=== PATIENT | female | born 1985 | race Caucasian/White ===

== ENCOUNTER 2022-08-29 17:56 | Inpatient (IN) | payer OTHER, SELFPAY ==
[2022-08-29 18:15] VITALS: BMI 36.6
[2022-08-29 18:20] VITALS: BP 138/82; PULSE 74; RESP 16; TEMP 36.7; O2SAT 98
[2022-08-29] MEDS: QUEtiapine Fumarate 50 MG TABLET 150 MG PO (20:41)
[2022-08-29] MEDS: Ibuprofen 600 MG TABLET PO (20:41)
[2022-08-29] MEDS: Promethazine HCL 25 MG TABLET PO (20:41)
[2022-08-29] MEDS: clonazePAM 1 MG TABLET PO (20:41)
[2022-08-29] MEDS: cloNIDine HCL 0.2 MG TABLET PO (20:41)
[2022-08-29] MEDS: Melatonin 3 MG TABLET 9 MG PO (20:41)
[2022-08-29] MEDS: Mirtazapine 15 MG TABLET PO (20:42)
[2022-08-29] MEDS: Nicotine Polacrilex 2 MG GUM 4 MG BUCCAL (20:51)
--- NOTE | 2022-08-30 02:43 | PC.ADMIT ---
Yeni is a 36 year-old, Black, obese, adult female, who appears her stated age and presents with a preexisting history of polysubstance abuse and housing instability. She is dressed in hospital attire, is oriented X4, and is calm and selectively cooperative during this assessment. She is depressed in mood with flat affect and makes minimal eye contact. She maintains suicidal ideation but appears to feign hypersomnolence when this clinician asks her to elaborate. After multiple prompts she follows up with, ?I don?t feel safe out there,? presumably alluding to her homelessness and lack of jail. She denies homicidal ideation. She denies auditory/visual hallucinations and does not appear to be responding to internal stimuli. Insight, judgment, and impulse control are deemed poor. Covid negative Utox positive for opiates an jay dust. Patient presents with some irritability but patient feels that is withdrawal from Methodone as she has not had her proper dose in a few days.
--- NOTE | 2022-08-30 06:40 | HE.PHANOTE ---
[facility] has received the methadone verification from CHARMAINE Sarah. Patient last received methadone 125 mg on 08/24 @ 0909 from [facility]. Information confirmed with carlee at the clinic. Gauri Griffin, RuthieD
[2022-08-30] MEDS: Promethazine HCL 25 MG TABLET PO ×3 (08:49→18:34)
[2022-08-30 08:50] VITALS: BP 108/64; PULSE 90; RESP 18; TEMP 36.3; O2SAT 94
[2022-08-30] MEDS: Nicotine 21 MG PATCH.TD24 TRANSDERMA (08:51)
[2022-08-30] MEDS: Omeprazole 20 MG CAPSULE.DR PO (08:52)
[2022-08-30] MEDS: Ibuprofen 600 MG TABLET PO ×3 (08:52→21:10)
[2022-08-30] MEDS: Sertraline HCL 100 MG TABLET PO (08:52)
[2022-08-30] MEDS: cloNIDine HCL 0.2 MG TABLET PO ×2 (08:53→21:10)
[2022-08-30] MEDS: clonazePAM 1 MG TABLET PO ×2 (08:54→21:23)
[2022-08-30] MEDS: methADONE HCl 20 MG/2 ML ORAL.CONC 90 MG PO (08:56)
[2022-08-30] MEDS: hydrOXYzine HCL 50 MG TABLET 100 MG PO ×3 (09:00→21:10)
[2022-08-30] MEDS: Nicotine Polacrilex 2 MG GUM 4 MG BUCCAL ×3 (09:02→21:11)
[2022-08-30 09:26] LABS: Estimated Average Glucose 151 mg/dL; Hemoglobin A1c % 6.9 %
[2022-08-30 09:36] LABS: Creatinine Clr Calc Pharmacy 114.7; Estimated Glomerular Filt Rate > 60
[2022-08-30 09:52] LABS: Alanine Aminotransferase 13 U/L (0-31); Albumin Level 3.9 g/dL (3.5-5.0); Alkaline Phosphatase 94 U/L (39-117); Anion Gap 13 (12-20); Aspartate Amino Transferase 10 U/L (5-31); Bilirubin Total 0.2 mg/dL (0.0-1.0); Blood Urea Nitrogen 14 mg/dL (9-16); Calcium 9.8 mg/dL (8.4-10.2); Carbon Dioxide 30 mmol/L (22-29); Chloride 105 mmol/L (96-108); Cholesterol 199 mg/dL; Creatinine Clr Calc Pharmacy 111.7; Estimated Glomerular Filt Rate > 60; Glucose Fasting 153 mg/dL (60-99); HDL Cholesterol 38 mg/dL; LDL Cholesterol Calculated 131 mg/dl; Potassium 4.3 mmol/L (3.3-5.1); Sodium 144 mmol/L (135-145); Total Protein 6.9 g/dL (6.5-8.0); Triglycerides 152 mg/dL
[2022-08-30 10:12] LABS: Folate 13.9 ng/mL (> or = 4.0); Free T4 (Free Thyroxine) 0.81 ng/dL (0.71-1.85); Thyroid Stimulating Hormone 0.96 uIU/mL (0.32-4.0); Vitamin B12 560 pg/mL (200-900)
--- NOTE | 2022-08-30 11:43 | HO.PM.IMCN ---
History of Present Illness Data of Consult Service Date: 08/30/22 Requesting physician: Malcolm Campbell Primary Care Provider: Unknown Physician HPI 36 year old female with history of controlled type 2 diabetes, OUD on methadone, polysubstance abuse, HLD, history of CDiff per patient, and anxiety/depression who is a current 1-2 PPD smoker admitted to psychiatry with consult placed to hospitalist service for medical H&P. The patient is quite hopeless and is having difficult maintaining focus answering my questions. She tells me she was diagnosed with type 2 diabetes abotu 15 years ago but was taken off all of her medications and was controlled for some time. However, recently gained weight and has been eating poorly and presented to a medical clinic with glucose of 300 and was prescribed metformin earlier this month. She has been inconsistent in taking this. A1c today is 6.9%. For the last 5 days has been having lower abdominal cramping and diarrhea (6+episodes daily). No fevers or shaking chills. No nausea, vomiting, melena, or hematachezia. She is concerned about CDiff. States she was recently on 3 antibiotics at the same time. Unable to tell me the names or why she was taking them. She is unable to tell me about recent drug use however Utox at [facility] ED was positive for methadone, fentanyl,benzos, thc, cocaine. There was no significant leukocytosis, renal function and lytes normal. Cholesterol slightly elevated. EKG NSR, rate 95, no tyron or depressions. She has no other complaints at this time. Review of Systems Review of Systems: General: No fevers, malaise, unintentional weight loss HEENT: No blurred vision, diplopia. No sore throat, nasal congestion, rhinorrhea, sinus pain, ear pain Cardiovascular: No chest pain, palpitations, or leg edema Respiratory: No shortness of breath, wheezing, cough GI: +abd pain, +diarrhea. No nausea, vomiting, constipation, melena, hematochezia : No dysuria, hematuria, increased urinary frequency, decreased urinary output MSK: No myalgia, back pain Neuro: No headaches, weakness, paresthesias Skin: No rashes or lesions [facility] Medical History Cigarette smoker Cyclic vomiting syndrome Depression with anxiety Hyperlipidemia Opioid dependence Polysubstance abuse Type 2 diabetes mellitus Social History Household Members: None Housing: Homeless Do you presently have visiting nurse or other home services: No Patient Tobacco Use Status: Current everyday Tobacco user Tobacco use type: Cigarette Cigarette Packs Per Day: 2 Cigarettes Per Day: 40.0 Smoked in Last 30 Days: Yes e-Cigarette/Vaping Use: Never Used Patient Interested in Nicotine Replacement: Yes Patient Given Instructions on How to Stop Smoking: Yes Date Education Initiated: 08/29/22 Second Hand Smoke Exposure: Yes Substance Use Type: Hallucinogens and Opiates Substance Use Type Other:: phencyclidine Substance Use Frequency: Recent Binge Last Used Substance: Just Prior to Admission Currently Displaying Signs/Symptoms of Drug Intoxication Withdrawal: No Any prior treatment program specific to substance use: No Have you been hit, kicked, punched, or otherwise hurt by someone within the past year? If so, by whom?: No Do you feel safe in your current relationship?: No Current Relationship Is there a partner from a previous relationship who is making you feel unsafe now?: No Are you made to feel afraid or neglected: No Spiritual Healthcare Practices: Pentecostalism Sikhism Healthcare Practices: Pentecostalism Cultural Healthcare Practices: none reported Advance Directives: No Advance Directives Information Provided: No Do you have thoughts of harming others: None Do you have a plan to hurt others: No Plan Recently lost weight without trying: No How much weight loss: Not applicable Eating poorly because of decreased appetite: No Nutrition screen score: 0 Nutrition Risks: No Nutritional Risk Patient : No : No Poor oral hygiene: No Meds Allergies Allergy/AdvReac Type Severity Reaction Status Date / Time Penicillins Allergy Intermediate Rash Verified 08/29/22 18:16 ondansetron Allergy Unknown Verified 08/29/22 23:24 hydrocodone AdvReac Unknown Verified 08/29/22 23:24 tramadol AdvReac Unknown Verified 08/29/22 23:24 Active Medications: Current Medications Acetaminophen (Acetaminophen 325 Mg Tablet) 650 mg PO Q6H PRN PRN Reason: Headache/Pain Mild Scale (1-3) Al Hydroxide/Mg Hydroxide (Magnesium Hydrox/Alum Hydrox 30 Ml Oral.Susp) 30 ml PO Q6H PRN PRN Reason: Heartburn/Nausea Clonazepam (Clonazepam 1 Mg Tablet) 1 mg PO Q8H PRN PRN Reason: Anxiety Last Admin: 08/30/22 08:54 Dose: 1 mg Clonidine HCl (Clonidine Hcl 0.2 Mg Tablet) 0.2 mg PO BID [facility]; Protocol Last Admin: 08/30/22 08:53 Dose: 0.2 mg Glucose (Glucose Gel 15 Gm Gel..Gram.) 15 gm PO Q15M PRN; Protocol PRN Reason: per Hypoglycemia Standing Ord. Hydroxyzine HCl (Hydroxyzine Hcl 50 Mg Tablet) 100 mg PO Q6H PRN PRN Reason: Anxiety Last Admin: 08/30/22 09:00 Dose: 100 mg Dextrose (D10) 250 mls @ 750 mls/hr IV Q15M PRN; Protocol PRN Reason: per Hypoglycemia Standing Ord. Ibuprofen (Ibuprofen 600 Mg Tablet) 600 mg PO TID [facility] Last Admin: 08/30/22 08:52 Dose: 600 mg Insulin Human Lispro (Insulin Lispro 100 Unit/Ml 3 Ml Vial) 0 unit SUBCUT QIDACHS [facility]; Protocol Magnesium Hydroxide (Milk Of Magnesia 30 Ml Oral.Susp) 30 ml PO DAILY PRN PRN Reason: Constipation Melatonin (Melatonin 3 Mg Tablet) 9 mg PO BEDTIME PRN PRN Reason: Sleep Last Admin: 08/29/22 20:41 Dose: 9 mg Metformin HCl (Metformin Hcl 500 Mg Tablet) 500 mg PO BIDWM [facility] Last Admin: 08/30/22 08:53 Dose: 500 mg Mirtazapine (Mirtazapine 15 Mg Tablet) 15 mg PO BEDTIME [facility] Last Admin: 08/29/22 20:42 Dose: 15 mg Nicotine (Nicotine 21 Mg Patch.Td24) 21 mg TRANSDERMA DAILY [facility] Last Admin: 08/30/22 08:51 Dose: 21 mg Nicotine Polacrilex (Nicotine Polacrilex 2 Mg Gum) 4 mg BUCCAL Q2H PRN PRN Reason: Nicotine Cravings Last Admin: 08/30/22 09:02 Dose: 4 mg Omeprazole (Omeprazole 20 Mg Capsule.Dr) 20 mg PO DAILY@0630 [facility] Last Admin: 08/30/22 08:52 Dose: 20 mg Promethazine HCl (Promethazine Hcl 25 Mg Tablet) 25 mg PO Q4H PRN PRN Reason: nausea Last Admin: 08/30/22 08:49 Dose: 25 mg Quetiapine Fumarate (Quetiapine Fumarate 50 Mg Tablet) 150 mg PO BEDTIME [facility] Last Admin: 08/29/22 20:41 Dose: 150 mg Sertraline HCl (Sertraline Hcl 100 Mg Tablet) 100 mg PO DAILY [facility] Last Admin: 08/30/22 08:52 Dose: 100 mg Trazodone HCl (Trazodone Hcl 50 Mg Tablet) 50 mg PO BEDTIME MRX1 PRN PRN Reason: Insomnia Home Medications Medication Instructions Recorded Confirmed Last Taken Type acetaminophen 325 mg tablet 650 mg PO Q4-6H PRN Pain 08/29/22 08/29/22 Unknown History (Tylenol) clonazepam 1 mg tablet (Klonopin) 1 mg PO Q8-10H PRN Anxiety 08/29/22 08/29/22 Unknown History clonidine HCl 0.2 mg tablet 0.2 mg PO BID 08/29/22 08/29/22 Unknown History hydroxyzine pamoate 100 mg capsule 100 mg PO Q6-8H PRN Anxiety 08/29/22 08/29/22 Unknown History ibuprofen 600 mg tablet 600 mg PO TID 08/29/22 08/29/22 Unknown History melatonin 3 mg tablet 9 mg PO BEDTIME PRN Sleep 08/29/22 08/29/22 Unknown History metformin 500 mg tablet 500 mg PO BID 08/29/22 08/29/22 Unknown History mirtazapine 15 mg tablet 15 mg PO BEDTIME 08/29/22 08/29/22 Unknown History nicotine (polacrilex) 2 mg gum 2 mg PO Q2-3H PRN Smoking Cessation 08/29/22 08/29/22 Unknown History (Nicorette) nicotine (polacrilex) 4 mg buccal 4 mg PO Q4-5H PRN Smoking Cessation 08/29/22 08/29/22 Unknown History lozenge (Nicorette) nicotine 21 mg/24 hr daily 1 patch topical DAILY 08/29/22 08/29/22 Unknown History transdermal patch pantoprazole 40 mg tablet,delayed 40 mg PO DAILY 08/29/22 08/29/22 Unknown History release promethazine 25 mg tablet 25 mg PO Q4-6H PRN nausea 08/29/22 08/29/22 Unknown History quetiapine 100 mg tablet (Seroquel) 150 mg PO BEDTIME 08/29/22 08/29/22 Unknown History sertraline 100 mg tablet 100 mg PO DAILY 08/29/22 08/29/22 Unknown History sertraline 100 mg tablet 100 mg PO DAILY 08/29/22 08/29/22 Unknown History methadone 10 mg/mL oral concentrate 125 mg PO DAILY 08/30/22 08/30/22 08/24/22 09:09 History methadone 10 mg/mL oral 125 mg PO DAILY 08/30/22 08/30/22 08/24/22 09:09 History concentrate (Methadose) Physical Exam Vital Signs and Narrative: Vital Signs: Last Vital Signs Temp 97.4 F 08/30/22 08:50 Pulse 90 08/30/22 08:50 Resp 18 08/30/22 08:50 BP 108/64 08/30/22 08:50 Pulse Ox 94 08/30/22 08:50 O2 Del Method Room Air 08/30/22 08:50 BMI result Body Mass Index 36.6 Constitutional - Awake and Alert, No apparent distress Eyes - PERRLA, EOMI Cardiovascular - S1S2, RRR, No edema Respiratory - Normal lung expansion, Normal respiratory effort, No respiratory distress, CTA bilaterally Gastrointestinal - NT / ND; +BS; No rebound or guarding Extremities - no calf tenderness bilaterally, no swelling Musculoskeletal - Normal inspection, normal ROM Skin - Warm/Dry Neurological - Alert & oriented x3, CN II-XII in tact, 5/5 strength BUE and BLE Psychological - Appropriate affect Results Labs 08/30/22 08:31 Labs: Laboratory Results - last 24 hr 08/30/22 08/30/22 08/30/22 08:31 08:31 08:31 Anion Gap 13 Estim Creat Clear Calc 111.7 114.7 Estimated GFR > 60 > 60 Fasting Glucose 153 H Estimat Average Glucose 151 Hemoglobin A1c % 6.9 Calcium 9.8 Total Bilirubin 0.2 AST 10 ALT 13 Alkaline Phosphatase 94 Total Protein 6.9 Albumin 3.9 Triglycerides 152 Cholesterol 199 LDL Cholesterol, Calc 131 HDL Cholesterol 38 Vitamin B12 560 Folate 13.9 TSH 0.96 Free T4 0.81 Assessment and Plan (1) Routine medical exam: Status: Acute Plan 36 year old female with history of controlled type 2 diabetes, OUD on methadone, polysubstance abuse, HLD, history of CDiff per patient, and anxiety/depression who is a current 1-2 PPD smoker admitted to psychiatry with consult placed to hospitalist service for medical H&P. #Mood disorder -plan per psychiatry #Polysubstance abuse and opioid dependence -continue methadone -plan per psychiatry #Acute diarrhea -rule out infectious etiology with CDiff PCR and GI panel (ordered) -Suspect metformin possibly contributing. Change to extended release formulation for decrease risk of GI upset (ordered) -Consider immodium once infection ruled out -Pt afebrile, no leukocytosis. Non toxic appearing. Abd exam benign #Controlled type 2 diabetes -Change metformin to ER as above -POC glucose -Recommend diabetic diet- counseled on this -Humalog on sliding scale #HLD -Recommend outpt follow up -Recommend lifestyle modification #Cigarette smoker -Nicotine patch for NRT -cessation counseling Thank you for allowing me to participate in this consult. Signing off at this time. Please do not hesitate to call for further questions. Time Spent With Patient Time: Total time managing care of this patient today ____ minutes.
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
[2022-08-30 18:26] LABS: Glucose, Whole Blood 191 mg/dL (60-115)
[2022-08-30] MEDS: Insulin Lispro 100 UNIT/ML 3 ML VIAL SUBCUT ×2 (18:29→21:11)
[2022-08-30] MEDS: QUEtiapine Fumarate 100 MG TABLET PO (18:43)
[2022-08-30] MEDS: clonazePAM 0.5 MG TABLET PO (18:43)
[2022-08-30 20:57] LABS: Glucose, Whole Blood 174 mg/dL (60-115)
[2022-08-30] MEDS: QUEtiapine Fumarate 50 MG TABLET 150 MG PO (21:10)
[2022-08-30] MEDS: metFORMIN HCl ER 500 MG TAB.ER.24H PO (21:10)
[2022-08-30] MEDS: Melatonin 3 MG TABLET 9 MG PO (21:10)
[2022-08-30] MEDS: Mirtazapine 15 MG TABLET PO (21:10)
[2022-08-30 21:20] VITALS: BP 101/58; PULSE 76; RESP 14; TEMP 36.1; O2SAT 98
[2022-08-31 08:32] VITALS: BP 113/58; PULSE 69; RESP 18; TEMP 36.1; O2SAT 96
[2022-08-31] MEDS: Nicotine 21 MG PATCH.TD24 TRANSDERMA (08:34)
[2022-08-31] MEDS: Ibuprofen 600 MG TABLET PO ×3 (08:35→21:02)
[2022-08-31] MEDS: Sertraline HCL 100 MG TABLET PO (08:35)
[2022-08-31] MEDS: cloNIDine HCL 0.2 MG TABLET PO ×2 (08:35→21:02)
[2022-08-31] MEDS: methADONE HCl 20 MG/2 ML ORAL.CONC 95 MG PO (08:35)
[2022-08-31] MEDS: Omeprazole 20 MG CAPSULE.DR PO (08:35)
[2022-08-31] MEDS: Promethazine HCL 25 MG TABLET PO ×3 (08:43→18:25)
[2022-08-31] MEDS: clonazePAM 0.5 MG TABLET PO (08:43)
[2022-08-31] MEDS: metFORMIN HCl ER 500 MG TAB.ER.24H PO ×2 (08:47→21:02)
[2022-08-31 08:57] LABS: Glucose, Whole Blood 169 mg/dL (60-115)
[2022-08-31] MEDS: QUEtiapine Fumarate 100 MG TABLET PO (09:36)
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
[2022-08-31 12:31] LABS: Glucose, Whole Blood 129 mg/dL (60-115)
--- NOTE | 2022-08-31 12:42 | PM.EVENT ---
Documented by User: TIARRA Calix 08/31/22 12:45 Event Note Date of Service: 08/31/22 Event Note: Follow-up for patient with a 5 day history of lower abdominal cramping and 6+ episodes of diarrhea daily. Patient no longer experiencing abdominal cramping or diarrhea. Last bowel movement was yesterday S so far no stool sample has been able to be collected. Will cancel C diff and GI panel. Will sign off at this time. If patient's symptoms return please do not hesitate to contact us and will consider further testing. Time Spent With Patient Time: Total time managing care of this patient today ____ minutes. Documented by User: Marya Hua MD 08/31/22 18:07 Event Note Date of Service: 08/31/22
[2022-08-31] MEDS: Acetaminophen 325 MG TABLET 650 MG PO (12:47)
[2022-08-31] MEDS: hydrOXYzine HCL 50 MG TABLET 100 MG PO (13:04)
[2022-08-31] MEDS: Sertraline HCL 25 MG TABLET PO (14:55)
[2022-08-31 17:14] LABS: Glucose, Whole Blood 202 mg/dL (60-115)
[2022-08-31] MEDS: Insulin Lispro 100 UNIT/ML 3 ML VIAL SUBCUT (18:14)
[2022-08-31] MEDS: Nicotine Polacrilex 2 MG GUM 4 MG BUCCAL ×2 (18:25→21:09)
[2022-08-31 20:30] VITALS: BP 111/53; PULSE 76; RESP 18; TEMP 36.8; O2SAT 96
[2022-08-31] MEDS: Milk of Magnesia 30 ML ORAL.SUSP PO (21:00)
[2022-08-31] MEDS: QUEtiapine Fumarate 50 MG TABLET 150 MG PO (21:01)
[2022-08-31] MEDS: Mirtazapine 15 MG TABLET PO (21:01)
[2022-08-31] MEDS: clonazePAM 1 MG TABLET PO (21:02)
[2022-08-31] MEDS: Melatonin 3 MG TABLET 9 MG PO (21:02)
[2022-08-31] MEDS: traZODone HCL 50 MG TABLET PO (21:03)
[2022-08-31 22:53] LABS: Glucose, Whole Blood 132 mg/dL (60-115)
[2022-09-01 08:26] LABS: Glucose, Whole Blood 126 mg/dL (60-115)
[2022-09-01] MEDS: Omeprazole 20 MG CAPSULE.DR PO (08:37)
[2022-09-01] MEDS: Sertraline HCL 50 MG TABLET 150 MG PO (08:37)
[2022-09-01] MEDS: Ibuprofen 600 MG TABLET PO ×3 (08:37→20:53)
[2022-09-01] MEDS: metFORMIN HCl ER 500 MG TAB.ER.24H PO ×2 (08:37→20:53)
[2022-09-01] MEDS: Nicotine 21 MG PATCH.TD24 TRANSDERMA (08:38)
[2022-09-01] MEDS: hydrOXYzine HCL 50 MG TABLET 100 MG PO ×2 (08:38→13:46)
[2022-09-01] MEDS: cloNIDine HCL 0.2 MG TABLET PO ×2 (08:38→20:53)
[2022-09-01] MEDS: clonazePAM 0.5 MG TABLET PO (08:38)
[2022-09-01] MEDS: Promethazine HCL 25 MG TABLET PO ×3 (08:38→20:52)
[2022-09-01] MEDS: methADONE HCl 20 MG/2 ML ORAL.CONC 100 MG PO (08:39)
[2022-09-01 08:42] VITALS: BP 114/66; PULSE 76; RESP 18; TEMP 36.8; O2SAT 99
--- NOTE | 2022-09-01 09:32 | P.PNPSI_ITS ---
Subjective Subjective Date of Service: 09/01/22 Reason For Visit: Unspecified trauma and stressor related d/o Interim History: Met with patient; discussed with team Patient reports feeling a little better today, greatly relieved to realize that her children have remained in that states and did not accompany their father to [facility]. She says this is a load offer mind. Patient is grateful for the increases in methadone and says it is helping; reviewed EKG and QTC WNL. Patient can tell her moods getting a little better as she is going to groups and even was looking forward to continued interactions. Sleeping well with trazodone. Patient shared more history of trauma growing up; discussed family relationships. Despite the difficulties patient feels that she wants to continue fighting to get back to stability. Mental Status Exam Mental Status Exam Narrative: Pt is alert and oriented; behavior is cooperative, calm; patient is not in distress; dressed in hospital attire, adequate hygiene; mood is described as little better and affect congruent, brighter; eye contact appropriate; Speech is quiet; normal rate and prosody; some psychomotor retardation present; thought process is organized and goal directed; Thought content is on getting stable, dealing with struggles; otherwise pertinent to relevant topics and without any delusional content, paranoid ideations or grandiosity; no SI; no HI. There is no evidence of perceptual disturbance. Patients insight and judgment are fair. Diagnostics Vital Signs (24Hr): Vital Signs - 24 hr 08/31/22 20:30 09/01/22 08:42 Temperature 98.2 F 98.3 F Pulse Rate 76 76 Respiratory Rate 18 18 Blood Pressure 111/53 L 114/66 Pulse Oximetry 96 99 Oxygen Delivery Method Room Air Room Air BMI result Body Mass Index 36.6 Labs 08/30/22 08:31 Labs: Laboratory Results - last 48 hr 08/30/22 08/30/22 08/30/22 08:31 08:31 18:18 Sodium 144 Potassium 4.3 Chloride 105 Carbon Dioxide 30 H Anion Gap 13 BUN 14 Creatinine 0.77 0.75 Estim Creat Clear Calc 111.7 114.7 Estimated GFR > 60 > 60 POC Glucose 191 H Fasting Glucose 153 H Calcium 9.8 Total Bilirubin 0.2 AST 10 ALT 13 Alkaline Phosphatase 94 Total Protein 6.9 Albumin 3.9 Triglycerides 152 Cholesterol 199 LDL Cholesterol, Calc 131 HDL Cholesterol 38 Vitamin B12 560 Folate 13.9 TSH 0.96 Free T4 0.81 08/30/22 08/31/22 08/31/22 20:51 08:46 12:25 Sodium Potassium Chloride Carbon Dioxide Anion Gap BUN Creatinine Estim Creat Clear Calc Estimated GFR POC Glucose 174 H 169 H 129 H Fasting Glucose Calcium Total Bilirubin AST ALT Alkaline Phosphatase Total Protein Albumin Triglycerides Cholesterol LDL Cholesterol, Calc HDL Cholesterol Vitamin B12 Folate TSH Free T4 08/31/22 08/31/22 09/01/22 17:07 20:44 08:06 Sodium Potassium Chloride Carbon Dioxide Anion Gap BUN Creatinine Estim Creat Clear Calc Estimated GFR POC Glucose 202 H 132 H 126 H Fasting Glucose Calcium Total Bilirubin AST ALT Alkaline Phosphatase Total Protein Albumin Triglycerides Cholesterol LDL Cholesterol, Calc HDL Cholesterol Vitamin B12 Folate TSH Free T4 Medications Medications Current Medications Acetaminophen (Acetaminophen 325 Mg Tablet) 650 mg PO Q6H PRN PRN Reason: Headache/Pain Mild Scale (1-3) Last Admin: 08/31/22 12:47 Dose: 650 mg Al Hydroxide/Mg Hydroxide (Magnesium Hydrox/Alum Hydrox 30 Ml Oral.Susp) 30 ml PO Q6H PRN PRN Reason: Heartburn/Nausea Clonazepam (Clonazepam 0.5 Mg Tablet) 0.5 mg PO DAILY PRN PRN Reason: Anxiety Last Admin: 09/01/22 08:38 Dose: 0.5 mg Clonazepam (Clonazepam 1 Mg Tablet) 1 mg PO BEDTIME PRN PRN Reason: Anxiety Last Admin: 08/31/22 21:02 Dose: 1 mg Clonidine HCl (Clonidine Hcl 0.2 Mg Tablet) 0.2 mg PO BID [facility]; Protocol Last Admin: 09/01/22 08:38 Dose: 0.2 mg Glucose (Glucose Gel 15 Gm Gel..Gram.) 15 gm PO Q15M PRN; Protocol PRN Reason: per Hypoglycemia Standing Ord. Hydroxyzine HCl (Hydroxyzine Hcl 50 Mg Tablet) 100 mg PO Q6H PRN PRN Reason: Anxiety Last Admin: 09/01/22 08:38 Dose: 100 mg Dextrose (D10) 250 mls @ 750 mls/hr IV Q15M PRN; Protocol PRN Reason: per Hypoglycemia Standing Ord. Ibuprofen (Ibuprofen 600 Mg Tablet) 600 mg PO TID [facility] Last Admin: 09/01/22 08:37 Dose: 600 mg Insulin Human Lispro (Insulin Lispro 100 Unit/Ml 3 Ml Vial) 0 unit SUBCUT QIDACHS [facility]; Protocol Last Admin: 09/01/22 08:09 Dose: Not Given Magnesium Hydroxide (Milk Of Magnesia 30 Ml Oral.Susp) 30 ml PO DAILY PRN PRN Reason: Constipation Last Admin: 08/31/22 21:00 Dose: 30 ml Melatonin (Melatonin 3 Mg Tablet) 9 mg PO BEDTIME PRN PRN Reason: Sleep Last Admin: 08/31/22 21:02 Dose: 9 mg Metformin HCl (Metformin Hcl Er 500 Mg Tab.Er.24h) 500 mg PO BID [facility] Last Admin: 09/01/22 08:37 Dose: 500 mg Methadone HCl (Methadone Hcl 20 Mg/2 Ml Oral.Conc) 100 mg PO DAILY [facility] Last Admin: 09/01/22 08:39 Dose: 100 mg Mirtazapine (Mirtazapine 15 Mg Tablet) 15 mg PO BEDTIME [facility] Last Admin: 08/31/22 21:01 Dose: 15 mg Nicotine (Nicotine 21 Mg Patch.Td24) 21 mg TRANSDERMA DAILY [facility] Last Admin: 09/01/22 08:38 Dose: 21 mg Nicotine Polacrilex (Nicotine Polacrilex 2 Mg Gum) 4 mg BUCCAL Q2H PRN PRN Reason: Nicotine Cravings Last Admin: 08/31/22 21:09 Dose: 4 mg Omeprazole (Omeprazole 20 Mg Capsule.Dr) 20 mg PO DAILY@0630 [facility] Last Admin: 09/01/22 08:37 Dose: 20 mg Promethazine HCl (Promethazine Hcl 25 Mg Tablet) 25 mg PO Q4H PRN PRN Reason: nausea Last Admin: 09/01/22 08:38 Dose: 25 mg Quetiapine Fumarate (Quetiapine Fumarate 50 Mg Tablet) 150 mg PO BEDTIME [facility] Last Admin: 08/31/22 21:01 Dose: 150 mg Quetiapine Fumarate (Quetiapine Fumarate 100 Mg Tablet) 100 mg PO DAILY PRN PRN Reason: anxiety/agitation Last Admin: 08/31/22 09:36 Dose: 100 mg Sertraline HCl (Sertraline Hcl 50 Mg Tablet) 150 mg PO DAILY [facility] Last Admin: 09/01/22 08:37 Dose: 150 mg Trazodone HCl (Trazodone Hcl 50 Mg Tablet) 50 mg PO BEDTIME MRX1 PRN PRN Reason: Insomnia Last Admin: 08/31/22 21:03 Dose: 50 mg Allergies Allergies Allergy/AdvReac Type Severity Reaction Status Date / Time Penicillins Allergy Intermediate Rash Verified 08/29/22 18:16 ondansetron Allergy Unknown Verified 08/29/22 23:24 hydrocodone AdvReac Unknown Verified 08/29/22 23:24 tramadol AdvReac Unknown Verified 08/29/22 23:24 Assessment & Plan Assessment & Plan (1) MDD (major depressive disorder), recurrent episode: Status: Acute Code(s): F33.9 - Major depressive disorder, recurrent, unspecified (2) PTSD (post-traumatic stress disorder): Status: Acute Code(s): F43.10 - Post-traumatic stress disorder, unspecified (3) Opioid use disorder: Status: Acute Code(s): F11.90 - Opioid use, unspecified, uncomplicated (4) Cyclic vomiting syndrome: Status: Acute Code(s): R11.15 - Cyclical vomiting syndrome unrelated to migraine (5) Type 2 diabetes mellitus: Status: Acute Code(s): E11.9 - Type 2 diabetes mellitus without complications Plan Patient Is a 36-year-old female with history of depression, PTSD opioid dependence, on methadone, who presents for suicidal ideation and worsening depression in the face of numerous psychosocial stressors. -patient was relatively stable on current medication regimen and methadone; patient undergoing numerous severe psychosocial stressors including divorce, have her kids taken to [facility] (not sure details), homelessness, relapse after 5 months sober. Will continue home medication regimen -hospitalist PA checking for GI panel; however patient's recent diarrhea and abdominal cramping coincide with discontinuation of opiates and seemed to have resolved now that they've been started. Hospital course: 08/31 patient remains depressed, hopeless; agrees to increasing Zoloft; social work working to to help find program for patient 09/01 patient's mood is a little better and she is finding herself more social, attending groups; patient feels who more hopeful about fighting for her own stability Plan: CV Q 15 minute checks Titrate methadone; increase to 105 mg daily (patient was on 125 mg only missed about 4 days worth of dosing prior to this admission); QTC on 08/31 WNL Continue Seroquel 100 mg daily as a p.r.n., patient says she is normally on this Continue Seroquel 150 mg q.h.s. Continue clonazepam 0.5 mg daily p.r.n. and 1 mg q.h.s. p.r.n. which is outpatient regimen Continue clonidine Increased to sertraline 150 mg daily (patient feels this medication has been helpful; has been at 100 mg for few months) Continue hydroxyzine Continue promethazine for cyclic vomiting Trazodone p.r.n. for sleep Patient educated on: diagnosis, medication risk/benefits and substance abuse Informed Consent: understands Reason for continued inpatient stay Substantial Risk for: rapid decompensation Time Spent With Patient Time: Total time managing care of this patient today ____ minutes.
[2022-09-01 11:17] LABS: Glucose, Whole Blood 234 mg/dL (60-115)
[2022-09-01] MEDS: Insulin Lispro 100 UNIT/ML 3 ML VIAL SUBCUT ×3 (11:31→20:50)
[2022-09-01] MEDS: QUEtiapine Fumarate 100 MG TABLET PO (11:32)
[2022-09-01] MEDS: Nicotine Polacrilex 2 MG GUM 4 MG BUCCAL ×3 (11:32→20:52)
--- NOTE | 2022-09-01 11:35 | ECG_ITS ---
Test Reason : ck qt rhythm Blood Pressure : / mmHG Vent. Rate : 078 BPM Atrial Rate : 078 BPM P-R Int : 176 ms QRS Dur : 084 ms QT Int : 396 ms P-R-T Axes : 046 051 034 degrees QTc Int : 451 ms Normal sinus rhythm Normal ECG No previous ECGs available Referred By: Boyd Ortez Electronically Signed By:MARK MONTOYA MD
[2022-09-01 11:51] VITALS: BMI 38.3
--- NOTE | 2022-09-01 11:52 | PC.NURSE ---
EKG given to Dr. Campbell to review.
[2022-09-01 17:43] LABS: Glucose, Whole Blood 177 mg/dL (60-115)
[2022-09-01 18:00] VITALS: BP 117/64; PULSE 83; RESP 18; TEMP 36.4; O2SAT 94
[2022-09-01] MEDS: QUEtiapine Fumarate 50 MG TABLET 150 MG PO (20:52)
[2022-09-01] MEDS: traZODone HCL 50 MG TABLET PO (20:52)
[2022-09-01] MEDS: Melatonin 3 MG TABLET 9 MG PO (20:53)
[2022-09-01] MEDS: clonazePAM 1 MG TABLET PO (20:53)
[2022-09-01] MEDS: Mirtazapine 15 MG TABLET PO (20:53)
[2022-09-01 21:50] LABS: Glucose, Whole Blood 188 mg/dL (60-115)
[2022-09-02 09:10] VITALS: BP 111/53; PULSE 83; RESP 18; TEMP 36.3; O2SAT 97
[2022-09-02 09:10] LABS: Glucose, Whole Blood 153 mg/dL (60-115)
[2022-09-02] MEDS: hydrOXYzine HCL 50 MG TABLET 100 MG PO ×2 (09:18→15:18)
[2022-09-02] MEDS: cloNIDine HCL 0.2 MG TABLET PO ×2 (09:18→20:46)
[2022-09-02] MEDS: metFORMIN HCl ER 500 MG TAB.ER.24H PO ×2 (09:18→20:45)
[2022-09-02] MEDS: clonazePAM 0.5 MG TABLET PO (09:18)
[2022-09-02] MEDS: Promethazine HCL 25 MG TABLET PO ×3 (09:18→20:45)
[2022-09-02] MEDS: methADONE HCl 20 MG/2 ML ORAL.CONC 105 MG PO (09:18)
[2022-09-02] MEDS: Ibuprofen 600 MG TABLET PO ×3 (09:19→20:47)
[2022-09-02] MEDS: Omeprazole 20 MG CAPSULE.DR PO (09:19)
[2022-09-02] MEDS: Sertraline HCL 50 MG TABLET 150 MG PO (09:19)
[2022-09-02] MEDS: Nicotine 21 MG PATCH.TD24 TRANSDERMA (09:25)
[2022-09-02] MEDS: QUEtiapine Fumarate 100 MG TABLET PO (09:30)
[2022-09-02 12:34] LABS: Glucose, Whole Blood 177 mg/dL (60-115)
[2022-09-02] MEDS: Nicotine Polacrilex 2 MG GUM 4 MG BUCCAL ×2 (12:54→15:19)
[2022-09-02] MEDS: Insulin Lispro 100 UNIT/ML 3 ML VIAL SUBCUT ×3 (13:21→20:48)
--- NOTE | 2022-09-02 14:47 | P.PNPSI_ITS ---
Subjective Subjective Date of Service: 09/02/22 Reason For Visit: Unspecified trauma and stressor related d/o Subjective Notes: Conditional Voluntary Interim History: Met with patient; discussed with team Pt presents as withdrawn, poor eye contact. She continues to report depressed mood, passive SI but denies any plan or intent. She reports she is motivated to continue dual dx residential treatment. She expresses her anxiety related to not having place to live and returning to the streets. She reports sleeping and eating well. No behavioral concerns. She does report some abdominal cramps, nausea for past week. no vomiting, seems to be getting better unclear if related to opioid withdrawal or increase in sertraline (less likely as increase is new and she has been on this medication in the past). No chest pain. Medication Compliance: Yes Side effects from medications: No Review of Systems Review of Systems General: No fevers, malaise, unintentional weight loss HEENT: No blurred vision, diplopia. No sore throat, nasal congestion, rhinorrhea, sinus pain, ear pain Cardiovascular: No chest pain, palpitations, or leg edema Respiratory: No shortness of breath, wheezing, cough GI: +abd pain, +diarrhea. No nausea, vomiting, constipation, melena, hematochezia : No dysuria, hematuria, increased urinary frequency, decreased urinary output MSK: No myalgia, back pain Neuro: No headaches, weakness, paresthesias Skin: No rashes or lesions Mental Status Exam Mental Status Exam Narrative: Appearance: casually groomed, good hygiene, in NAD Behavior: cooperative Psychomotor: no agitation or retardation noted Speech: clear, normal rate/rhythm, spontaneous TP: linear TC: no signs of psychosis or delusions, feeling hopeless. Mood: depressed and anxious SI: passive HI: denies VH/AH: none Delusions: none Insight/judgment: fair x 2. Memory/cog: alert, oriented x 3. grossly intact to conversational testing. Diagnostics Vital Signs (24Hr): Vital Signs - 24 hr 09/01/22 18:00 09/02/22 09:10 Temperature 97.6 F 97.4 F Pulse Rate 83 83 Respiratory Rate 18 18 Blood Pressure 117/64 111/53 L Pulse Oximetry 94 97 Oxygen Delivery Method Room Air Room Air BMI result Body Mass Index 38.3 Labs 08/30/22 08:31 Labs: Laboratory Results - last 48 hr 08/31/22 08/31/22 09/01/22 17:07 20:44 08:06 POC Glucose 202 H 132 H 126 H 09/01/22 09/01/22 09/01/22 11:14 17:38 20:36 POC Glucose 234 H 177 H 188 H 09/02/22 09/02/22 09:04 12:26 POC Glucose 153 H 177 H Medications Medications Current Medications Acetaminophen (Acetaminophen 325 Mg Tablet) 650 mg PO Q6H PRN PRN Reason: Headache/Pain Mild Scale (1-3) Last Admin: 08/31/22 12:47 Dose: 650 mg Al Hydroxide/Mg Hydroxide (Magnesium Hydrox/Alum Hydrox 30 Ml Oral.Susp) 30 ml PO Q6H PRN PRN Reason: Heartburn/Nausea Clonazepam (Clonazepam 0.5 Mg Tablet) 0.5 mg PO DAILY PRN PRN Reason: Anxiety Last Admin: 09/02/22 09:18 Dose: 0.5 mg Clonazepam (Clonazepam 1 Mg Tablet) 1 mg PO BEDTIME PRN PRN Reason: Anxiety Last Admin: 09/01/22 20:53 Dose: 1 mg Clonidine HCl (Clonidine Hcl 0.2 Mg Tablet) 0.2 mg PO BID [facility]; Protocol Last Admin: 09/02/22 09:18 Dose: 0.2 mg Glucose (Glucose Gel 15 Gm Gel..Gram.) 15 gm PO Q15M PRN; Protocol PRN Reason: per Hypoglycemia Standing Ord. Hydroxyzine HCl (Hydroxyzine Hcl 50 Mg Tablet) 100 mg PO Q6H PRN PRN Reason: Anxiety Last Admin: 09/02/22 09:18 Dose: 100 mg Dextrose (D10) 250 mls @ 750 mls/hr IV Q15M PRN; Protocol PRN Reason: per Hypoglycemia Standing Ord. Ibuprofen (Ibuprofen 600 Mg Tablet) 600 mg PO TID [facility] Last Admin: 09/02/22 09:19 Dose: 600 mg Insulin Human Lispro (Insulin Lispro 100 Unit/Ml 3 Ml Vial) 0 unit SUBCUT QIDACHS [facility]; Protocol Last Admin: 09/02/22 13:26 Dose: 2 unit Magnesium Hydroxide (Milk Of Magnesia 30 Ml Oral.Susp) 30 ml PO DAILY PRN PRN Reason: Constipation Last Admin: 08/31/22 21:00 Dose: 30 ml Melatonin (Melatonin 3 Mg Tablet) 9 mg PO BEDTIME PRN PRN Reason: Sleep Last Admin: 09/01/22 20:53 Dose: 9 mg Metformin HCl (Metformin Hcl Er 500 Mg Tab.Er.24h) 500 mg PO BID [facility] Last Admin: 09/02/22 09:18 Dose: 500 mg Methadone HCl (Methadone Hcl 20 Mg/2 Ml Oral.Conc) 105 mg PO DAILY [facility] Last Admin: 09/02/22 09:18 Dose: 105 mg Mirtazapine (Mirtazapine 15 Mg Tablet) 15 mg PO BEDTIME [facility] Last Admin: 09/01/22 20:53 Dose: 15 mg Nicotine (Nicotine 21 Mg Patch.Td24) 21 mg TRANSDERMA DAILY [facility] Last Admin: 09/02/22 09:25 Dose: 21 mg Nicotine Polacrilex (Nicotine Polacrilex 2 Mg Gum) 4 mg BUCCAL Q2H PRN PRN Reason: Nicotine Cravings Last Admin: 09/02/22 12:54 Dose: 4 mg Omeprazole (Omeprazole 20 Mg Capsule.Dr) 20 mg PO DAILY@0630 [facility] Last Admin: 09/02/22 09:19 Dose: 20 mg Promethazine HCl (Promethazine Hcl 25 Mg Tablet) 25 mg PO Q4H PRN PRN Reason: nausea Last Admin: 09/02/22 12:54 Dose: 25 mg Quetiapine Fumarate (Quetiapine Fumarate 50 Mg Tablet) 150 mg PO BEDTIME [facility] Last Admin: 09/01/22 20:52 Dose: 150 mg Quetiapine Fumarate (Quetiapine Fumarate 100 Mg Tablet) 100 mg PO DAILY PRN PRN Reason: anxiety/agitation Last Admin: 09/02/22 09:30 Dose: 100 mg Sertraline HCl (Sertraline Hcl 50 Mg Tablet) 150 mg PO DAILY [facility] Last Admin: 09/02/22 09:19 Dose: 150 mg Trazodone HCl (Trazodone Hcl 50 Mg Tablet) 50 mg PO BEDTIME MRX1 PRN PRN Reason: Insomnia Last Admin: 09/01/22 20:52 Dose: 50 mg Allergies Allergies Allergy/AdvReac Type Severity Reaction Status Date / Time Penicillins Allergy Intermediate Rash Verified 08/29/22 18:16 ondansetron Allergy Unknown Verified 08/29/22 23:24 hydrocodone AdvReac Unknown Verified 08/29/22 23:24 tramadol AdvReac Unknown Verified 08/29/22 23:24 Assessment & Plan Assessment & Plan (1) MDD (major depressive disorder), recurrent episode: Status: Acute Code(s): F33.9 - Major depressive disorder, recurrent, unspecified (2) PTSD (post-traumatic stress disorder): Status: Acute Code(s): F43.10 - Post-traumatic stress disorder, unspecified (3) Opioid use disorder: Status: Acute Code(s): F11.90 - Opioid use, unspecified, uncomplicated (4) Cyclic vomiting syndrome: Status: Acute Code(s): R11.15 - Cyclical vomiting syndrome unrelated to migraine (5) Type 2 diabetes mellitus: Status: Acute Code(s): E11.9 - Type 2 diabetes mellitus without complications Plan Patient Is a 36-year-old female with history of depression, PTSD opioid dependence, on methadone, who presents for suicidal ideation and worsening depression in the face of numerous psychosocial stressors. -patient was relatively stable on current medication regimen and methadone; patient undergoing numerous severe psychosocial stressors including divorce, have her kids taken to [facility] (not sure details), homelessness, relapse after 5 months sober. Will continue home medication regimen -hospitalist PA checking for GI panel; however patient's recent diarrhea and abdominal cramping coincide with discontinuation of opiates and seemed to have resolved now that they've been started. Hospital course: 08/31 patient remains depressed, hopeless; agrees to increasing Zoloft; social work working to to help find program for patient 09/01 patient's mood is a little better and she is finding herself more social, attending groups; patient feels who more hopeful about fighting for her own stability 09/02 continue tx. Plan: CV Q 15 minute checks Titrate methadone; increase to 105 mg daily (patient was on 125 mg only missed about 4 days worth of dosing prior to this admission); QTC on 08/31 WNL Continue Seroquel 100 mg daily as a p.r.n., patient says she is normally on this Continue Seroquel 150 mg q.h.s. Continue clonazepam 0.5 mg daily p.r.n. and 1 mg q.h.s. p.r.n. which is outpatient regimen Continue clonidine Increased to sertraline 150 mg daily (patient feels this medication has been helpful; has been at 100 mg for few months) Continue hydroxyzine Continue promethazine for cyclic vomiting Trazodone p.r.n. for sleep Reason for continued inpatient stay Substantial Risk for: harm to self Time Spent With Patient Time: Total time managing care of this patient today ____ minutes.
[2022-09-02 17:49] LABS: Glucose, Whole Blood 128 mg/dL (60-115)
[2022-09-02 20:35] LABS: Glucose, Whole Blood 166 mg/dL (60-115)
[2022-09-02] MEDS: Mirtazapine 15 MG TABLET PO (20:44)
[2022-09-02] MEDS: QUEtiapine Fumarate 50 MG TABLET 150 MG PO (20:44)
[2022-09-02 20:45] VITALS: BP 120/69; PULSE 74; RESP 16; TEMP 36.3; O2SAT 97
[2022-09-02] MEDS: clonazePAM 1 MG TABLET PO (20:45)
[2022-09-02] MEDS: Melatonin 3 MG TABLET 9 MG PO (20:46)
[2022-09-02] MEDS: traZODone HCL 50 MG TABLET PO (20:47)
[2022-09-03 08:00] VITALS: BP 108/60; PULSE 79; RESP 18; TEMP 36.6; O2SAT 100
[2022-09-03 08:08] LABS: Glucose, Whole Blood 144 mg/dL (60-115)
[2022-09-03] MEDS: Nicotine 21 MG PATCH.TD24 TRANSDERMA (09:08)
[2022-09-03] MEDS: Ibuprofen 600 MG TABLET PO ×3 (09:11→20:34)
[2022-09-03] MEDS: cloNIDine HCL 0.2 MG TABLET PO ×2 (09:11→20:33)
[2022-09-03] MEDS: Omeprazole 20 MG CAPSULE.DR PO (09:12)
[2022-09-03] MEDS: metFORMIN HCl ER 500 MG TAB.ER.24H PO ×2 (09:13→20:33)
[2022-09-03] MEDS: Sertraline HCL 50 MG TABLET 150 MG PO (09:13)
[2022-09-03] MEDS: methADONE HCl 20 MG/2 ML ORAL.CONC 105 MG PO (09:14)
[2022-09-03] MEDS: Promethazine HCL 25 MG TABLET PO ×3 (09:45→20:33)
[2022-09-03] MEDS: clonazePAM 0.5 MG TABLET PO (09:45)
[2022-09-03] MEDS: Nicotine Polacrilex 2 MG GUM 4 MG BUCCAL ×2 (10:28→20:41)
[2022-09-03 12:10] LABS: Glucose, Whole Blood 245 mg/dL (60-115)
[2022-09-03] MEDS: Insulin Lispro 100 UNIT/ML 3 ML VIAL SUBCUT ×2 (12:16→20:37)
[2022-09-03] MEDS: hydrOXYzine HCL 50 MG TABLET 100 MG PO (14:55)
[2022-09-03 17:23] LABS: Glucose, Whole Blood 135 mg/dL (60-115)
--- NOTE | 2022-09-03 20:00 | P.PNPSI_ITS ---
Subjective Subjective Date of Service: 09/03/22 Reason For Visit: Unspecified trauma and stressor related d/o Subjective Notes: Conditional Voluntary Interim History: Met with patient; reviewed chart; discussed with staff. Pt presents as withdrawn, poor eye contact. She continues to report anxiety and depressed mood, passive SI but denies any plan or intent. She reports she is motivated to continue dual dx residential treatment. She expresses her anxiety related to not having place to live and returning to the streets. pt request increase in prn clonazepam; discussed risks vs benefits and plan to decrease again in future for lowest effective dose. She reports sleeping and eating well. No behavioral concerns. She reports less abdominal cramping, no nausea, no vomiting. No sedation; no dizziness, no gait disturbance; no chest pain Medication Compliance: Yes Side effects from medications: No Attending Groups: Intermittent Review of Systems Acute medical concerns: No Medical Review of Systems: unchanged Review of Systems Review of Systems General: No fevers, malaise, unintentional weight loss HEENT: No blurred vision, diplopia. No sore throat, nasal congestion, rhinorrhea, sinus pain, ear pain Cardiovascular: No chest pain, palpitations, or leg edema Respiratory: No shortness of breath, wheezing, cough GI: +abd pain, +diarrhea. No nausea, vomiting, constipation, melena, hematochezia : No dysuria, hematuria, increased urinary frequency, decreased urinary output MSK: No myalgia, back pain Neuro: No headaches, weakness, paresthesias Skin: No rashes or lesions Mental Status Exam Mental Status Exam Narrative: Appearance: casually groomed, good hygiene, in NAD Behavior: cooperative Psychomotor: no agitation or retardation noted Speech: clear, normal rate/rhythm, spontaneous TP: linear TC: no signs of psychosis or delusions, feeling hopeless. Mood: depressed and anxious SI: passive HI: denies VH/AH: none Delusions: none Insight/judgment: fair x 2. Memory/cog: alert, oriented x 3. grossly intact to conversational testing. Diagnostics Vital Signs (24Hr): Vital Signs - 24 hr 09/02/22 20:45 09/03/22 08:00 Temperature 97.4 F 97.9 F Pulse Rate 74 79 Respiratory Rate 16 18 Blood Pressure 120/69 108/60 Pulse Oximetry 97 100 Oxygen Delivery Method Room Air Room Air BMI result Body Mass Index 38.3 Labs 08/30/22 08:31 Labs: Laboratory Results - last 48 hr 09/01/22 09/02/22 09/02/22 20:36 09:04 12:26 POC Glucose 188 H 153 H 177 H 09/02/22 09/02/22 09/03/22 17:44 20:31 07:56 POC Glucose 128 H 166 H 144 H 09/03/22 09/03/22 12:06 17:19 POC Glucose 245 H 135 H Medications Medications Current Medications Acetaminophen (Acetaminophen 325 Mg Tablet) 650 mg PO Q6H PRN PRN Reason: Headache/Pain Mild Scale (1-3) Last Admin: 08/31/22 12:47 Dose: 650 mg Al Hydroxide/Mg Hydroxide (Magnesium Hydrox/Alum Hydrox 30 Ml Oral.Susp) 30 ml PO Q6H PRN PRN Reason: Heartburn/Nausea Clonazepam (Clonazepam 0.5 Mg Tablet) 0.5 mg PO DAILY PRN PRN Reason: Anxiety Last Admin: 09/03/22 09:45 Dose: 0.5 mg Clonazepam (Clonazepam 1 Mg Tablet) 1 mg PO BEDTIME PRN PRN Reason: Anxiety Last Admin: 09/02/22 20:45 Dose: 1 mg Clonidine HCl (Clonidine Hcl 0.2 Mg Tablet) 0.2 mg PO BID [facility]; Protocol Last Admin: 09/03/22 09:11 Dose: 0.2 mg Glucose (Glucose Gel 15 Gm Gel..Gram.) 15 gm PO Q15M PRN; Protocol PRN Reason: per Hypoglycemia Standing Ord. Hydroxyzine HCl (Hydroxyzine Hcl 50 Mg Tablet) 100 mg PO Q6H PRN PRN Reason: Anxiety Last Admin: 09/03/22 14:55 Dose: 100 mg Dextrose (D10) 250 mls @ 750 mls/hr IV Q15M PRN; Protocol PRN Reason: per Hypoglycemia Standing Ord. Ibuprofen (Ibuprofen 600 Mg Tablet) 600 mg PO TID [facility] Last Admin: 09/03/22 14:53 Dose: 600 mg Insulin Human Lispro (Insulin Lispro 100 Unit/Ml 3 Ml Vial) 0 unit SUBCUT QIDACHS [facility]; Protocol Last Admin: 09/03/22 17:23 Dose: Not Given Magnesium Hydroxide (Milk Of Magnesia 30 Ml Oral.Susp) 30 ml PO DAILY PRN PRN Reason: Constipation Last Admin: 08/31/22 21:00 Dose: 30 ml Melatonin (Melatonin 3 Mg Tablet) 9 mg PO BEDTIME PRN PRN Reason: Sleep Last Admin: 09/02/22 20:46 Dose: 9 mg Metformin HCl (Metformin Hcl Er 500 Mg Tab.Er.24h) 500 mg PO BID [facility] Last Admin: 09/03/22 09:13 Dose: 500 mg Methadone HCl (Methadone Hcl 20 Mg/2 Ml Oral.Conc) 105 mg PO DAILY [facility] Last Admin: 09/03/22 09:14 Dose: 105 mg Mirtazapine (Mirtazapine 15 Mg Tablet) 15 mg PO BEDTIME [facility] Last Admin: 09/02/22 20:44 Dose: 15 mg Nicotine (Nicotine 21 Mg Patch.Td24) 21 mg TRANSDERMA DAILY [facility] Last Admin: 09/03/22 09:08 Dose: 21 mg Nicotine Polacrilex (Nicotine Polacrilex 2 Mg Gum) 4 mg BUCCAL Q2H PRN PRN Reason: Nicotine Cravings Last Admin: 09/03/22 10:28 Dose: 4 mg Omeprazole (Omeprazole 20 Mg Capsule.Dr) 20 mg PO DAILY@0630 [facility] Last Admin: 09/03/22 09:12 Dose: 20 mg Promethazine HCl (Promethazine Hcl 25 Mg Tablet) 25 mg PO Q4H PRN PRN Reason: nausea Last Admin: 09/03/22 14:52 Dose: 25 mg Quetiapine Fumarate (Quetiapine Fumarate 50 Mg Tablet) 150 mg PO BEDTIME [facility] Last Admin: 09/02/22 20:44 Dose: 150 mg Quetiapine Fumarate (Quetiapine Fumarate 100 Mg Tablet) 100 mg PO DAILY PRN PRN Reason: anxiety/agitation Last Admin: 09/02/22 09:30 Dose: 100 mg Sertraline HCl (Sertraline Hcl 50 Mg Tablet) 150 mg PO DAILY [facility] Last Admin: 09/03/22 09:13 Dose: 150 mg Trazodone HCl (Trazodone Hcl 50 Mg Tablet) 50 mg PO BEDTIME MRX1 PRN PRN Reason: Insomnia Last Admin: 09/02/22 20:47 Dose: 50 mg Allergies Allergies Allergy/AdvReac Type Severity Reaction Status Date / Time Penicillins Allergy Intermediate Rash Verified 08/29/22 18:16 ondansetron Allergy Unknown Verified 08/29/22 23:24 hydrocodone AdvReac Unknown Verified 08/29/22 23:24 tramadol AdvReac Unknown Verified 08/29/22 23:24 Assessment & Plan Assessment & Plan (1) MDD (major depressive disorder), recurrent episode: Status: Acute Code(s): F33.9 - Major depressive disorder, recurrent, unspecified (2) PTSD (post-traumatic stress disorder): Status: Acute Code(s): F43.10 - Post-traumatic stress disorder, unspecified (3) Opioid use disorder: Status: Acute Code(s): F11.90 - Opioid use, unspecified, uncomplicated (4) Cyclic vomiting syndrome: Status: Acute Code(s): R11.15 - Cyclical vomiting syndrome unrelated to migraine (5) Type 2 diabetes mellitus: Status: Acute Code(s): E11.9 - Type 2 diabetes mellitus without complications Plan Patient Is a 36-year-old female with history of depression, PTSD opioid dependence, on methadone, who presents for suicidal ideation and worsening depression in the face of numerous psychosocial stressors. -patient was relatively stable on current medication regimen and methadone; patient undergoing numerous severe psychosocial stressors including divorce, have her kids taken to [facility] (not sure details), homelessness, relapse after 5 months sober. Will continue home medication regimen -hospitalist PA checking for GI panel; however patient's recent diarrhea and abdominal cramping coincide with discontinuation of opiates and seemed to have resolved now that they've been started. Hospital course: 08/31 patient remains depressed, hopeless; agrees to increasing Zoloft; social work working to to help find program for patient 09/01 patient's mood is a little better and she is finding herself more social, attending groups; patient feels who more hopeful about fighting for her own stability 09/02 continue tx. 09/03 continue treatment Plan: CV Q 15 minute checks Titrate methadone; increase to 105 mg daily (patient was on 125 mg only missed about 4 days worth of dosing prior to this admission); QTC on 08/31 WNL Continue Seroquel 100 mg daily as a p.r.n., patient says she is normally on this Continue Seroquel 150 mg q.h.s. INCREASE clonazepam 0.5 mg to BID p.r.n anxiety and 1 mg q.h.s. p.r.n. which is outpatient regimen Continue clonidine Increased to sertraline 150 mg daily (patient feels this medication has been helpful; has been at 100 mg for few months) Continue hydroxyzine Continue promethazine for cyclic vomiting Trazodone p.r.n. for sleep Patient educated on: diagnosis, medication risk/benefits and therapeutic strategies Informed Consent: understands and further education needed Reason for continued inpatient stay Substantial Risk for: harm to self, inability to function and rapid decompensation Time Spent With Patient Time: Total time managing care of this patient today ____ minutes.
[2022-09-03 20:10] VITALS: BP 112/65; PULSE 79; RESP 18; TEMP 36.5; O2SAT 96
[2022-09-03] MEDS: clonazePAM 1 MG TABLET PO (20:32)
[2022-09-03] MEDS: Mirtazapine 15 MG TABLET PO (20:33)
[2022-09-03] MEDS: Melatonin 3 MG TABLET 9 MG PO (20:34)
[2022-09-03] MEDS: QUEtiapine Fumarate 50 MG TABLET 150 MG PO (20:34)
[2022-09-03 21:06] LABS: Glucose, Whole Blood 173 mg/dL (60-115)
[2022-09-04] MEDS: hydrOXYzine HCL 50 MG TABLET 100 MG PO ×3 (02:51→15:01)
[2022-09-04 08:15] VITALS: BP 118/61; PULSE 93; RESP 18; TEMP 36.6; O2SAT 99
[2022-09-04 08:26] LABS: Glucose, Whole Blood 222 mg/dL (60-115)
[2022-09-04] MEDS: Promethazine HCL 25 MG TABLET PO ×2 (09:21→15:05)
[2022-09-04] MEDS: cloNIDine HCL 0.2 MG TABLET PO ×2 (09:22→21:49)
[2022-09-04] MEDS: Ibuprofen 600 MG TABLET PO ×3 (09:23→21:49)
[2022-09-04] MEDS: Sertraline HCL 50 MG TABLET 150 MG PO (09:23)
[2022-09-04] MEDS: Nicotine 21 MG PATCH.TD24 TRANSDERMA (09:24)
[2022-09-04] MEDS: Omeprazole 20 MG CAPSULE.DR PO (09:24)
[2022-09-04] MEDS: metFORMIN HCl ER 500 MG TAB.ER.24H PO ×2 (09:25→21:48)
[2022-09-04] MEDS: Insulin Lispro 100 UNIT/ML 3 ML VIAL SUBCUT ×3 (09:26→21:58)
[2022-09-04] MEDS: methADONE HCl 20 MG/2 ML ORAL.CONC 105 MG PO (09:29)
[2022-09-04] MEDS: clonazePAM 0.5 MG TABLET PO (09:48)
[2022-09-04] MEDS: Nicotine Polacrilex 2 MG GUM 4 MG BUCCAL (09:48)
[2022-09-04 11:44] LABS: Glucose, Whole Blood 197 mg/dL (60-115)
[2022-09-04] MEDS: QUEtiapine Fumarate 100 MG TABLET PO (11:53)
[2022-09-04] MEDS: Magnesium Hydrox/Alum Hydrox 30 ML ORAL.SUSP PO (15:05)
[2022-09-04 16:41] LABS: Glucose, Whole Blood 144 mg/dL (60-115)
--- NOTE | 2022-09-04 17:10 | P.PNPSI_ITS ---
Subjective Subjective Date of Service: 09/04/22 Reason For Visit: Unspecified trauma and stressor related d/o Subjective Notes: Conditional Voluntary Interim History: Met with patient; reviewed chart; discussed with staff. Pt presents as withdrawn, She reports feeling very depressed and anxious; reports meds help a little; poor eye contact. reports passive SI but denies any plan or intent. She reports she is motivated to continue dual dx residential treatment. She expresses her anxiety related to not having place to live and returning to the streets. She reports sleeping and eating well. No behavioral concerns. Medication Compliance: Yes Side effects from medications: No Attending Groups: Yes Review of Systems Acute medical concerns: No Medical Review of Systems: unchanged Review of Systems Review of Systems General: No fevers, malaise, unintentional weight loss HEENT: No blurred vision, diplopia. No sore throat, nasal congestion, rhinorrhea, sinus pain, ear pain Cardiovascular: No chest pain, palpitations, or leg edema Respiratory: No shortness of breath, wheezing, cough GI: +abd pain, +diarrhea. No nausea, vomiting, constipation, melena, hematochezia : No dysuria, hematuria, increased urinary frequency, decreased urinary output MSK: No myalgia, back pain Neuro: No headaches, weakness, paresthesias Skin: No rashes or lesions Mental Status Exam Mental Status Exam Narrative: Appearance: casually groomed, good hygiene, in NAD Behavior: cooperative Psychomotor: no agitation or retardation noted Speech: clear, normal rate/rhythm, spontaneous TP: linear TC: no signs of psychosis or delusions, feeling hopeless. Mood: depressed and anxious SI: passive HI: denies VH/AH: none Delusions: none Insight/judgment: fair x 2. Memory/cog: alert, oriented x 3. grossly intact to conversational testing. Diagnostics Vital Signs (24Hr): Vital Signs - 24 hr 09/03/22 20:10 09/04/22 08:15 Temperature 97.7 F 97.8 F Pulse Rate 79 93 Respiratory Rate 18 18 Blood Pressure 112/65 118/61 Pulse Oximetry 96 99 Oxygen Delivery Method Room Air Room Air BMI result Body Mass Index 38.3 Labs 08/30/22 08:31 Labs: Laboratory Results - last 48 hr 09/02/22 09/02/22 09/03/22 17:44 20:31 07:56 POC Glucose 128 H 166 H 144 H 09/03/22 09/03/22 09/03/22 12:06 17:19 20:22 POC Glucose 245 H 135 H 173 H 09/04/22 09/04/22 09/04/22 08:20 11:37 16:35 POC Glucose 222 H 197 H 144 H Medications Medications Current Medications Acetaminophen (Acetaminophen 325 Mg Tablet) 650 mg PO Q6H PRN PRN Reason: Headache/Pain Mild Scale (1-3) Last Admin: 08/31/22 12:47 Dose: 650 mg Al Hydroxide/Mg Hydroxide (Magnesium Hydrox/Alum Hydrox 30 Ml Oral.Susp) 30 ml PO Q6H PRN PRN Reason: Heartburn/Nausea Last Admin: 09/04/22 15:05 Dose: 30 ml Clonazepam (Clonazepam 1 Mg Tablet) 1 mg PO BEDTIME PRN PRN Reason: Anxiety Last Admin: 09/03/22 20:32 Dose: 1 mg Clonazepam (Clonazepam 0.5 Mg Tablet) 0.5 mg PO BID PRN PRN Reason: Anxiety Last Admin: 09/04/22 09:48 Dose: 0.5 mg Clonidine HCl (Clonidine Hcl 0.2 Mg Tablet) 0.2 mg PO BID [facility]; Protocol Last Admin: 09/04/22 09:22 Dose: 0.2 mg Glucose (Glucose Gel 15 Gm Gel..Gram.) 15 gm PO Q15M PRN; Protocol PRN Reason: per Hypoglycemia Standing Ord. Hydroxyzine HCl (Hydroxyzine Hcl 50 Mg Tablet) 100 mg PO Q6H PRN PRN Reason: Anxiety Last Admin: 09/04/22 15:01 Dose: 100 mg Dextrose (D10) 250 mls @ 750 mls/hr IV Q15M PRN; Protocol PRN Reason: per Hypoglycemia Standing Ord. Ibuprofen (Ibuprofen 600 Mg Tablet) 600 mg PO TID [facility] Last Admin: 09/04/22 15:00 Dose: 600 mg Insulin Human Lispro (Insulin Lispro 100 Unit/Ml 3 Ml Vial) 0 unit SUBCUT QIDACHS [facility]; Protocol Last Admin: 09/04/22 11:53 Dose: 2 unit Magnesium Hydroxide (Milk Of Magnesia 30 Ml Oral.Susp) 30 ml PO DAILY PRN PRN Reason: Constipation Last Admin: 08/31/22 21:00 Dose: 30 ml Melatonin (Melatonin 3 Mg Tablet) 9 mg PO BEDTIME PRN PRN Reason: Sleep Last Admin: 09/03/22 20:34 Dose: 9 mg Metformin HCl (Metformin Hcl Er 500 Mg Tab.Er.24h) 500 mg PO BID [facility] Last Admin: 09/04/22 09:25 Dose: 500 mg Methadone HCl (Methadone Hcl 20 Mg/2 Ml Oral.Conc) 105 mg PO DAILY [facility] Last Admin: 09/04/22 09:29 Dose: 105 mg Mirtazapine (Mirtazapine 15 Mg Tablet) 15 mg PO BEDTIME [facility] Last Admin: 09/03/22 20:33 Dose: 15 mg Nicotine (Nicotine 21 Mg Patch.Td24) 21 mg TRANSDERMA DAILY [facility] Last Admin: 09/04/22 09:24 Dose: 21 mg Nicotine Polacrilex (Nicotine Polacrilex 2 Mg Gum) 4 mg BUCCAL Q2H PRN PRN Reason: Nicotine Cravings Last Admin: 09/04/22 09:48 Dose: 4 mg Omeprazole (Omeprazole 20 Mg Capsule.Dr) 20 mg PO DAILY@0630 [facility] Last Admin: 09/04/22 09:24 Dose: 20 mg Promethazine HCl (Promethazine Hcl 25 Mg Tablet) 25 mg PO Q4H PRN PRN Reason: nausea Last Admin: 09/04/22 15:05 Dose: 25 mg Quetiapine Fumarate (Quetiapine Fumarate 50 Mg Tablet) 150 mg PO BEDTIME [facility] Last Admin: 09/03/22 20:34 Dose: 150 mg Quetiapine Fumarate (Quetiapine Fumarate 100 Mg Tablet) 100 mg PO DAILY PRN PRN Reason: anxiety/agitation Last Admin: 09/04/22 11:53 Dose: 100 mg Sertraline HCl (Sertraline Hcl 50 Mg Tablet) 150 mg PO DAILY [facility] Last Admin: 09/04/22 09:23 Dose: 150 mg Trazodone HCl (Trazodone Hcl 50 Mg Tablet) 50 mg PO BEDTIME MRX1 PRN PRN Reason: Insomnia Last Admin: 09/02/22 20:47 Dose: 50 mg Allergies Allergies Allergy/AdvReac Type Severity Reaction Status Date / Time Penicillins Allergy Intermediate Rash Verified 08/29/22 18:16 ondansetron Allergy Unknown Verified 08/29/22 23:24 hydrocodone AdvReac Unknown Verified 08/29/22 23:24 tramadol AdvReac Unknown Verified 08/29/22 23:24 Assessment & Plan Assessment & Plan (1) MDD (major depressive disorder), recurrent episode: Status: Acute Code(s): F33.9 - Major depressive disorder, recurrent, unspecified (2) PTSD (post-traumatic stress disorder): Status: Acute Code(s): F43.10 - Post-traumatic stress disorder, unspecified (3) Opioid use disorder: Status: Acute Code(s): F11.90 - Opioid use, unspecified, uncomplicated (4) Cyclic vomiting syndrome: Status: Acute Code(s): R11.15 - Cyclical vomiting syndrome unrelated to migraine (5) Type 2 diabetes mellitus: Status: Acute Code(s): E11.9 - Type 2 diabetes mellitus without complications Plan Patient Is a 36-year-old female with history of depression, PTSD opioid dependence, on methadone, who presents for suicidal ideation and worsening depre ssion in the face of numerous psychosocial stressors. -patient was relatively stable on current medication regimen and methadone; patient undergoing numerous severe psychosocial stressors including divorce, have her kids taken to [facility] (not sure details), homelessness, relapse after 5 months sober. Will continue home medication regimen -hospitalist PA checking for GI panel; however patient's recent diarrhea and abdominal cramping coincide with discontinuation of opiates and seemed to have resolved now that they've been started. Hospital course: 08/31 patient remains depressed, hopeless; agrees to increasing Zoloft; social work working to to help find program for patient 09/01 patient's mood is a little better and she is finding herself more social, attending groups; patient feels who more hopeful about fighting for her own stability 09/02 continue tx. 09/03 continue treatment 09/04 continue treatment plan Plan: CV Q 15 minute checks Titrate methadone; increase to 105 mg daily (patient was on 125 mg only missed about 4 days worth of dosing prior to this admission); QTC on 08/31 WNL Continue Seroquel 100 mg daily as a p.r.n., patient says she is normally on this Continue Seroquel 150 mg q.h.s. Continue clonazepam 0.5 mg to BID p.r.n anxiety and 1 mg q.h.s. p.r.n. Continue clonidine Increased to sertraline 150 mg daily (patient feels this medication has been helpful; has been at 100 mg for few months) Continue hydroxyzine Continue promethazine for cyclic vomiting Trazodone p.r.n. for sleep Patient educated on: diagnosis, medication risk/benefits and therapeutic strategies Informed Consent: understands and further education needed Reason for continued inpatient stay Substantial Risk for: harm to self, inability to function and rapid decompensation Time Spent With Patient Time: Total time managing care of this patient today _15___ minutes.
[2022-09-04 20:25] VITALS: BP 112/71; PULSE 75; RESP 18; TEMP 36.6; O2SAT 99
[2022-09-04] MEDS: Mirtazapine 15 MG TABLET PO (21:47)
[2022-09-04] MEDS: QUEtiapine Fumarate 50 MG TABLET 150 MG PO (21:47)
[2022-09-04] MEDS: Melatonin 3 MG TABLET 9 MG PO (21:48)
[2022-09-04] MEDS: clonazePAM 1 MG TABLET PO (21:49)
[2022-09-04 21:58] LABS: Glucose, Whole Blood 178 mg/dL (60-115)
[2022-09-05] MEDS: hydrOXYzine HCL 50 MG TABLET 100 MG PO ×2 (03:32→17:14)
[2022-09-05 08:00] VITALS: BP 101/60; PULSE 76; RESP 18; TEMP 36.6; O2SAT 96
[2022-09-05 08:45] LABS: Glucose, Whole Blood 130 mg/dL (60-115)
[2022-09-05] MEDS: Sertraline HCL 50 MG TABLET 150 MG PO (09:59)
[2022-09-05] MEDS: metFORMIN HCl ER 500 MG TAB.ER.24H PO ×2 (10:00→20:43)
[2022-09-05] MEDS: Ibuprofen 600 MG TABLET PO ×2 (10:00→20:48)
[2022-09-05] MEDS: Omeprazole 20 MG CAPSULE.DR PO (10:01)
[2022-09-05] MEDS: Nicotine 21 MG PATCH.TD24 TRANSDERMA (10:01)
[2022-09-05] MEDS: Promethazine HCL 25 MG TABLET PO ×2 (10:02→17:14)
[2022-09-05] MEDS: cloNIDine HCL 0.2 MG TABLET PO ×2 (10:02→20:42)
[2022-09-05] MEDS: clonazePAM 0.5 MG TABLET PO (10:02)
[2022-09-05] MEDS: methADONE HCl 20 MG/2 ML ORAL.CONC 105 MG PO (10:03)
--- NOTE | 2022-09-05 11:07 | P.PNPSI_ITS ---
Subjective Subjective Date of Service: 09/05/22 Reason For Visit: Unspecified trauma and stressor related d/o Subjective Notes: Conditional Voluntary Interim History: Pt reports slightly less depressed, more hopeful that she may get into a program. She has been more visible on the unit but has not attended many groups- encouraged to do so as [facility] are group based treatments. We also discussed that [facility] may have bed this week but they are concern about the fact that pt is on clonazepam. I discussed with pt that she may need to come off otherwise they may not take her. Also, reminded pt that she currently does not hav prescriber and is up to outpatient to continue benzos given risk of misuse or abuse as she continues working on her recovery. Per nursing, pt visible on the unit. slept through the night. No behavioral concerns. Review of Systems Review of Systems General: No fevers, malaise, unintentional weight loss HEENT: No blurred vision, diplopia. No sore throat, nasal congestion, rhinorrhea, sinus pain, ear pain Cardiovascular: No chest pain, palpitations, or leg edema Respiratory: No shortness of breath, wheezing, cough GI: +abd pain, +diarrhea. No nausea, vomiting, constipation, melena, hematochezia : No dysuria, hematuria, increased urinary frequency, decreased urinary output MSK: No myalgia, back pain Neuro: No headaches, weakness, paresthesias Skin: No rashes or lesions Mental Status Exam Mental Status Exam Narrative: Appearance: casually groomed, good hygiene, in NAD Behavior: cooperative Psychomotor: no agitation or retardation noted Speech: clear, normal rate/rhythm, spontaneous TP: linear TC: no signs of psychosis or delusions, feeling hopeless. Mood: a little bit better SI: none HI: denies VH/AH: none Delusions: none Insight/judgment: fair x 2. Memory/cog: alert, oriented x 3. grossly intact to conversational testing. Diagnostics Vital Signs (24Hr): Vital Signs - 24 hr 09/04/22 20:25 09/05/22 08:00 Temperature 97.9 F 97.8 F Pulse Rate 75 76 Respiratory Rate 18 18 Blood Pressure 112/71 101/60 Pulse Oximetry 99 96 Oxygen Delivery Method Room Air Room Air BMI result Body Mass Index 38.3 Labs 08/30/22 08:31 Labs: Laboratory Results - last 48 hr 09/03/22 09/03/22 09/03/22 12:06 17:19 20:22 POC Glucose 245 H 135 H 173 H 09/04/22 09/04/22 09/04/22 08:20 11:37 16:35 POC Glucose 222 H 197 H 144 H 09/04/22 09/05/22 21:46 08:28 POC Glucose 178 H 130 H Medications Medications Current Medications Acetaminophen (Acetaminophen 325 Mg Tablet) 650 mg PO Q6H PRN PRN Reason: Headache/Pain Mild Scale (1-3) Last Admin: 08/31/22 12:47 Dose: 650 mg Al Hydroxide/Mg Hydroxide (Magnesium Hydrox/Alum Hydrox 30 Ml Oral.Susp) 30 ml PO Q6H PRN PRN Reason: Heartburn/Nausea Last Admin: 09/04/22 15:05 Dose: 30 ml Clonazepam (Clonazepam 1 Mg Tablet) 1 mg PO BEDTIME PRN PRN Reason: Anxiety Last Admin: 09/04/22 21:49 Dose: 1 mg Clonazepam (Clonazepam 0.5 Mg Tablet) 0.5 mg PO BID PRN PRN Reason: Anxiety Last Admin: 09/05/22 10:02 Dose: 0.5 mg Clonidine HCl (Clonidine Hcl 0.2 Mg Tablet) 0.2 mg PO BID [facility]; Protocol Last Admin: 09/05/22 10:02 Dose: 0.2 mg Glucose (Glucose Gel 15 Gm Gel..Gram.) 15 gm PO Q15M PRN; Protocol PRN Reason: per Hypoglycemia Standing Ord. Hydroxyzine HCl (Hydroxyzine Hcl 50 Mg Tablet) 100 mg PO Q6H PRN PRN Reason: Anxiety Last Admin: 09/05/22 03:32 Dose: 100 mg Dextrose (D10) 250 mls @ 750 mls/hr IV Q15M PRN; Protocol PRN Reason: per Hypoglycemia Standing Ord. Ibuprofen (Ibuprofen 600 Mg Tablet) 600 mg PO TID [facility] Last Admin: 09/05/22 10:00 Dose: 600 mg Insulin Human Lispro (Insulin Lispro 100 Unit/Ml 3 Ml Vial) 0 unit SUBCUT QIDAC [facility]; Protocol Last Admin: 09/05/22 10:23 Dose: Not Given Magnesium Hydroxide (Milk Of Magnesia 30 Ml Oral.Susp) 30 ml PO DAILY PRN PRN Reason: Constipation Last Admin: 08/31/22 21:00 Dose: 30 ml Melatonin (Melatonin 3 Mg Tablet) 9 mg PO BEDTIME PRN PRN Reason: Sleep Last Admin: 09/04/22 21:48 Dose: 9 mg Metformin HCl (Metformin Hcl Er 500 Mg Tab.Er.24h) 500 mg PO BID [facility] Last Admin: 09/05/22 10:00 Dose: 500 mg Methadone HCl (Methadone Hcl 20 Mg/2 Ml Oral.Conc) 105 mg PO DAILY [facility] Last Admin: 09/05/22 10:03 Dose: 105 mg Mirtazapine (Mirtazapine 15 Mg Tablet) 15 mg PO BEDTIME [facility] Last Admin: 09/04/22 21:47 Dose: 15 mg Nicotine (Nicotine 21 Mg Patch.Td24) 21 mg TRANSDERMA DAILY [facility] Last Admin: 09/05/22 10:01 Dose: 21 mg Nicotine Polacrilex (Nicotine Polacrilex 2 Mg Gum) 4 mg BUCCAL Q2H PRN PRN Reason: Nicotine Cravings Last Admin: 09/04/22 09:48 Dose: 4 mg Omeprazole (Omeprazole 20 Mg Capsule.Dr) 20 mg PO DAILY@0630 [facility] Last Admin: 09/05/22 10:01 Dose: 20 mg Promethazine HCl (Promethazine Hcl 25 Mg Tablet) 25 mg PO Q4H PRN PRN Reason: nausea Last Admin: 09/05/22 10:02 Dose: 25 mg Quetiapine Fumarate (Quetiapine Fumarate 50 Mg Tablet) 150 mg PO BEDTIME [facility] Last Admin: 09/04/22 21:47 Dose: 150 mg Quetiapine Fumarate (Quetiapine Fumarate 100 Mg Tablet) 100 mg PO DAILY PRN PRN Reason: anxiety/agitation Last Admin: 09/04/22 11:53 Dose: 100 mg Sertraline HCl (Sertraline Hcl 50 Mg Tablet) 150 mg PO DAILY [facility] Last Admin: 09/05/22 09:59 Dose: 150 mg Trazodone HCl (Trazodone Hcl 50 Mg Tablet) 50 mg PO BEDTIME MRX1 PRN PRN Reason: Insomnia Last Admin: 09/02/22 20:47 Dose: 50 mg Allergies Allergies Allergy/AdvReac Type Severity Reaction Status Date / Time Penicillins Allergy Intermediate Rash Verified 08/29/22 18:16 ondansetron Allergy Unknown Verified 08/29/22 23:24 hydrocodone AdvReac Unknown Verified 08/29/22 23:24 tramadol AdvReac Unknown Verified 08/29/22 23:24 Assessment & Plan Assessment & Plan (1) MDD (major depressive disorder), recurrent episode: Status: Acute Code(s): F33.9 - Major depressive disorder, recurrent, unspecified (2) PTSD (post-traumatic stress disorder): Status: Acute Code(s): F43.10 - Post-traumatic stress disorder, unspecified (3) Opioid use disorder: Status: Acute Code(s): F11.90 - Opioid use, unspecified, uncomplicated (4) Cyclic vomiting syndrome: Status: Acute Code(s): R11.15 - Cyclical vomiting syndrome unrelated to migraine (5) Type 2 diabetes mellitus: Status: Acute Code(s): E11.9 - Type 2 diabetes mellitus without complications Plan Patient Is a 36-year-old female with history of depression, PTSD opioid dep endence, on methadone, who presents for suicidal ideation and worsening depression in the face of numerous psychosocial stressors. -patient was relatively stable on current medication regimen and methadone; patient undergoing numerous severe psychosocial stressors including divorce, have her kids taken to [facility] (not sure details), homelessness, relapse after 5 months sober. Will continue home medication regimen -hospitalist PA checking for GI panel; however patient's recent diarrhea and abdominal cramping coincide with discontinuation of opiates and seemed to have resolved now that they've been started. Hospital course: 08/31 patient remains depressed, hopeless; agrees to increasing Zoloft; social work working to to help find program for patient 09/01 patient's mood is a little better and she is finding herself more social, attending groups; patient feels who more hopeful about fighting for her own stability 09/02 continue tx. 09/03 continue treatment 09/04 continue treatment plan 09/05 continue current medications. Pt explained clonazepam rx not given on discharged, [facility] may not agree to take pt on benzos. added lidocaine patch for back pain. Reason for continued inpatient stay Substantial Risk for: harm to self Time Spent With Patient Time: Total time managing care of this patient today ____ minutes.
[2022-09-05 12:20] LABS: Glucose, Whole Blood 246 mg/dL (60-115)
[2022-09-05] MEDS: Famotidine 20 MG TABLET PO ×2 (12:22→20:43)
[2022-09-05] MEDS: Insulin Lispro 100 UNIT/ML 3 ML VIAL SUBCUT ×2 (12:23→17:14)
[2022-09-05] MEDS: Nicotine Polacrilex 2 MG GUM 4 MG BUCCAL ×2 (12:29→17:14)
[2022-09-05] MEDS: QUEtiapine Fumarate 100 MG TABLET PO (13:40)
[2022-09-05] MEDS: Lidocaine 4 % Patch ADH..PATCH 1 PATCH TRANSDERMA (13:41)
[2022-09-05 16:56] LABS: Glucose, Whole Blood 191 mg/dL (60-115)
[2022-09-05 20:03] LABS: Glucose, Whole Blood 122 mg/dL (60-115)
[2022-09-05 20:10] VITALS: BP 122/64; PULSE 79; RESP 18; TEMP 36.6; O2SAT 95
[2022-09-05] MEDS: QUEtiapine Fumarate 50 MG TABLET 150 MG PO (20:42)
[2022-09-05] MEDS: traZODone HCL 50 MG TABLET PO (20:43)
[2022-09-05] MEDS: clonazePAM 1 MG TABLET PO (20:43)
[2022-09-05] MEDS: Mirtazapine 15 MG TABLET PO (20:44)
[2022-09-05] MEDS: Milk of Magnesia 30 ML ORAL.SUSP PO (20:49)
[2022-09-06 08:31] LABS: Glucose, Whole Blood 130 mg/dL (60-115)
[2022-09-06 09:21] VITALS: BP 116/64; PULSE 83; RESP 18; TEMP 36.6; O2SAT 97
[2022-09-06] MEDS: Omeprazole 20 MG CAPSULE.DR PO (09:24)
[2022-09-06] MEDS: Sertraline HCL 50 MG TABLET 150 MG PO (09:24)
[2022-09-06] MEDS: metFORMIN HCl ER 500 MG TAB.ER.24H PO ×2 (09:24→20:46)
[2022-09-06] MEDS: cloNIDine HCL 0.2 MG TABLET PO ×2 (09:24→20:45)
[2022-09-06] MEDS: Lidocaine 4 % Patch ADH..PATCH 1 PATCH TRANSDERMA (09:24)
[2022-09-06] MEDS: Famotidine 20 MG TABLET PO ×2 (09:24→20:45)
[2022-09-06] MEDS: Nicotine 21 MG PATCH.TD24 TRANSDERMA (09:25)
[2022-09-06] MEDS: methADONE HCl 20 MG/2 ML ORAL.CONC 105 MG PO (09:25)
[2022-09-06 09:28] LABS: Creatinine Clr Calc Pharmacy 114.7; Estimated Glomerular Filt Rate > 60
[2022-09-06] MEDS: Promethazine HCL 25 MG TABLET PO ×3 (09:35→20:45)
[2022-09-06] MEDS: clonazePAM 0.5 MG TABLET PO ×2 (09:35→20:56)
[2022-09-06] MEDS: Nicotine Polacrilex 2 MG GUM 4 MG BUCCAL ×2 (09:35→11:23)
[2022-09-06] MEDS: hydrOXYzine HCL 50 MG TABLET 100 MG PO ×2 (11:23→20:46)
[2022-09-06 13:07] LABS: Glucose, Whole Blood 128 mg/dL (60-115)
[2022-09-06 16:51] LABS: Glucose, Whole Blood 150 mg/dL (60-115)
[2022-09-06] MEDS: Mirtazapine 30 MG TABLET PO (20:45)
[2022-09-06] MEDS: QUEtiapine Fumarate 50 MG TABLET 150 MG PO (20:45)
[2022-09-06] MEDS: QUEtiapine Fumarate 100 MG TABLET PO (20:50)
[2022-09-06 21:01] VITALS: BP 130/63; PULSE 84; TEMP 36.8; O2SAT 96
--- NOTE | 2022-09-06 22:51 | P.PNPSI_ITS ---
Subjective Subjective Date of Service: 09/06/22 Reason For Visit: Unspecified trauma and stressor related d/o Interim History: pt delves deep into her trauma Hx and negative experiences with her ex-, yann prompt. after much indulgence and circuitousness, pt is able to say she is having trouble sleeping and agrees to increase in remeron. per staff, dep 7, present in milieu. anx 10. +SI, no plan. seeing things running that aren't there. slept well after 10 pm. planning for discharge to [facility] by end of week. Mental Status Exam Mental Status Exam Narrative: Appearance: casually groomed, good hygiene, in NAD Behavior: cooperative Psychomotor: no agitation or retardation noted Speech: clear, normal rate/rhythm, spontaneous TP: digressive, over-inclusive of detail TC: no signs of psychosis or delusions, feeling hopeless. Mood: low. lotta anxiety. SI: none expressed HI: none expressed VH/AH: none expressed Delusions: none expressed Insight/judgment: fair x 2. Memory/cog: alert, oriented x 3. grossly intact to conversational testing. Diagnostics Vital Signs (24Hr): Vital Signs - 24 hr 09/06/22 09:21 09/06/22 21:01 Temperature 97.9 F 98.3 F Pulse Rate 83 84 Respiratory Rate 18 Blood Pressure 116/64 130/63 Pulse Oximetry 97 96 Oxygen Delivery Method Room Air Room Air BMI result Body Mass Index 38.3 Labs 09/06/22 09:00 Labs: Laboratory Results - last 48 hr 09/05/22 09/05/22 09/05/22 08:28 12:15 16:51 Creatinine Estim Creat Clear Calc Estimated GFR POC Glucose 130 H 246 H 191 H 09/05/22 09/06/22 09/06/22 20:00 08:27 09:00 Creatinine 0.77 Estim Creat Clear Calc 114.7 Estimated GFR > 60 POC Glucose 122 H 130 H 09/06/22 09/06/22 13:02 16:47 Creatinine Estim Creat Clear Calc Estimated GFR POC Glucose 128 H 150 H Medications Medications Current Medications Acetaminophen (Acetaminophen 325 Mg Tablet) 650 mg PO Q6H PRN PRN Reason: Headache/Pain Mild Scale (1-3) Last Admin: 08/31/22 12:47 Dose: 650 mg Al Hydroxide/Mg Hydroxide (Magnesium Hydrox/Alum Hydrox 30 Ml Oral.Susp) 30 ml PO Q6H PRN PRN Reason: Heartburn/Nausea Last Admin: 09/04/22 15:05 Dose: 30 ml Clonazepam (Clonazepam 0.5 Mg Tablet) 0.5 mg PO BID PRN PRN Reason: Anxiety Last Admin: 09/06/22 20:56 Dose: 0.5 mg Clonidine HCl (Clonidine Hcl 0.2 Mg Tablet) 0.2 mg PO BID [facility]; Protocol Last Admin: 09/06/22 20:45 Dose: 0.2 mg Famotidine (Famotidine 20 Mg Tablet) 20 mg PO BID [facility] Last Admin: 09/06/22 20:45 Dose: 20 mg Glucose (Glucose Gel 15 Gm Gel..Gram.) 15 gm PO Q15M PRN; Protocol PRN Reason: per Hypoglycemia Standing Ord. Hydroxyzine HCl (Hydroxyzine Hcl 50 Mg Tablet) 100 mg PO Q6H PRN PRN Reason: Anxiety Last Admin: 09/06/22 20:46 Dose: 100 mg Dextrose (D10) 250 mls @ 750 mls/hr IV Q15M PRN; Protocol PRN Reason: per Hypoglycemia Standing Ord. Ibuprofen (Ibuprofen 600 Mg Tablet) 600 mg PO TID PRN PRN Reason: pain moderate Last Admin: 09/05/22 20:48 Dose: 600 mg Insulin Human Lispro (Insulin Lispro 100 Unit/Ml 3 Ml Vial) 0 unit SUBCUT QIDACHS [facility]; Protocol Last Admin: 09/06/22 21:00 Dose: Not Given Lidocaine (Lidocaine 4 % Patch Adh..Patch) 1 patch TRANSDERMA DAILY [facility]; Protocol Last Admin: 09/06/22 09:24 Dose: 1 patch Magnesium Hydroxide (Milk Of Magnesia 30 Ml Oral.Susp) 30 ml PO DAILY PRN PRN Reason: Constipation Last Admin: 09/05/22 20:49 Dose: 30 ml Melatonin (Melatonin 3 Mg Tablet) 9 mg PO BEDTIME PRN PRN Reason: Sleep Last Admin: 09/04/22 21:48 Dose: 9 mg Metformin HCl (Metformin Hcl Er 500 Mg Tab.Er.24h) 500 mg PO BID [facility] Last Admin: 09/06/22 20:46 Dose: 500 mg Methadone HCl (Methadone Hcl 20 Mg/2 Ml Oral.Conc) 105 mg PO DAILY [facility] Last Admin: 06/06/23 09:25 Dose: 105 mg Mirtazapine (Mirtazapine 30 Mg Tablet) 30 mg PO BEDTIME [facility] Last Admin: 09/06/22 20:45 Dose: 30 mg Nicotine (Nicotine 21 Mg Patch.Td24) 21 mg TRANSDERMA DAILY [facility] Last Admin: 09/06/22 09:25 Dose: 21 mg Nicotine Polacrilex (Nicotine Polacrilex 2 Mg Gum) 4 mg BUCCAL Q2H PRN PRN Reason: Nicotine Cravings Last Admin: 09/06/22 11:23 Dose: 4 mg Omeprazole (Omeprazole 20 Mg Capsule.Dr) 20 mg PO DAILY@30 [facility] Last Admin: 09/06/22 09:24 Dose: 20 mg Promethazine HCl (Promethazine Hcl 25 Mg Tablet) 25 mg PO Q4H PRN PRN Reason: nausea Last Admin: 09/06/22 20:45 Dose: 25 mg Quetiapine Fumarate (Quetiapine Fumarate 50 Mg Tablet) 150 mg PO BEDTIME [facility] Last Admin: 09/06/22 20:45 Dose: 150 mg Quetiapine Fumarate (Quetiapine Fumarate 100 Mg Tablet) 100 mg PO DAILY PRN PRN Reason: anxiety/agitation Last Admin: 09/06/22 20:50 Dose: 100 mg Sertraline HCl (Sertraline Hcl 50 Mg Tablet) 150 mg PO DAILY [facility] Last Admin: 09/06/22 09:24 Dose: 150 mg Trazodone HCl (Trazodone Hcl 50 Mg Tablet) 50 mg PO BEDTIME PRN PRN Reason: Insomnia Last Admin: 09/05/22 20:43 Dose: 50 mg Allergies Allergies Allergy/AdvReac Type Severity Reaction Status Date / Time Penicillins Allergy Intermediate Rash Verified 08/29/22 18:16 ondansetron Allergy Unknown Verified 08/29/22 23:24 hydrocodone AdvReac Unknown Verified 08/29/22 23:24 tramadol AdvReac Unknown Verified 08/29/22 23:24 Assessment & Plan Assessment & Plan (1) MDD (major depressive disorder), recurrent episode: Status: Acute Code(s): F33.9 - Major depressive disorder, recurrent, unspecified (2) PTSD (post-traumatic stress disorder): Status: Acute Code(s): F43.10 - Post-traumatic stress disorder, unspecified (3) Opioid use disorder: Status: Acute Code(s): F11.90 - Opioid use, unspecified, uncomplicated (4) Cyclic vomiting syndrome: Status: Acute Code(s): R11.15 - Cyclical vomiting syndrome unrelated to migraine (5) Type 2 diabetes mellitus: Status: Acute Code(s): E11.9 - Type 2 diabetes mellitus without complications Plan Patient Is a 36-year-old female with history of depression, PTSD opioid dependence, on methadone, who presents for suicidal ideation and worsening d epression in the face of numerous psychosocial stressors. -patient was relatively stable on current medication regimen and methadone; patient undergoing numerous severe psychosocial stressors including divorce, have her kids taken to [facility] (not sure details), homelessness, relapse after 5 months sober. Will continue home medication regimen -hospitalist PA checking for GI panel; however patient's recent diarrhea and abdominal cramping coincide with discontinuation of opiates and seemed to have r esolved now that they've been started. Hospital course: 08/31 patient remains depressed, hopeless; agrees to increasing Zoloft; social work working to to help find program for patient 09/01 patient's mood is a little better and she is finding herself more social, attending groups; patient feels who more hopeful about fighting for her own stability 09/02 continue tx. 09/03 continue treatment 09/04 continue treatment plan 09/05 continue current medications. Pt explained clonazepam rx not given on discharged, [facility] may not agree to take pt on benzos. added lidocaine patch for back pain. 09/06: increase remeron from 15 mg to 30 mg QHS. otherwise continue previous care. planning to DC to [facility] by end of week. Reason for continued inpatient stay Substantial Risk for: rapid decompensation Time Spent With Patient Time: Total time managing care of this patient today _35___ minutes.
[2022-09-07] MEDS: Lidocaine 4 % Patch ADH..PATCH 1 PATCH TRANSDERMA (08:47)
[2022-09-07] MEDS: Nicotine 21 MG PATCH.TD24 TRANSDERMA (08:48)
[2022-09-07] MEDS: methADONE HCl 20 MG/2 ML ORAL.CONC 105 MG PO (08:48)
[2022-09-07] MEDS: Sertraline HCL 50 MG TABLET 150 MG PO (08:49)
[2022-09-07] MEDS: cloNIDine HCL 0.2 MG TABLET PO (08:50)
[2022-09-07] MEDS: metFORMIN HCl ER 500 MG TAB.ER.24H PO (08:50)
[2022-09-07] MEDS: Famotidine 20 MG TABLET PO (08:50)
[2022-09-07] MEDS: Omeprazole 20 MG CAPSULE.DR PO (08:50)
[2022-09-07 09:00] VITALS: BP 132/79; PULSE 76; RESP 18; TEMP 36.6; O2SAT 97
[2022-09-07] MEDS: clonazePAM 0.5 MG TABLET PO (09:06)
[2022-09-07] MEDS: hydrOXYzine HCL 50 MG TABLET 100 MG PO (09:06)
[2022-09-07] MEDS: Promethazine HCL 25 MG TABLET PO (09:06)
[2022-09-07] MEDS: Nicotine Polacrilex 2 MG GUM 4 MG BUCCAL (10:33)
[2022-09-07] MEDS: QUEtiapine Fumarate 100 MG TABLET PO (10:34)
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
== END 2022-09-07 13:15 | disposition home or self-care (01) | DRG 751 ==
PROVIDERS: Physician Assistant; Psychiatry & Neurology Psychiatry; Admitting Provider Psychiatry & Neurology Psychiatry; Visit Provider Social Worker
DX: F33.1 Major depressive disorder, recurrent, moderate (principal); R45.851 Suicidal ideations; E11.9 Type 2 diabetes mellitus without complications; F11.20 Opioid dependence, uncomplicated; E78.5 Hyperlipidemia, unspecified; F19.10 Other psychoactive substance abuse, uncomplicated; F17.210 Nicotine dependence, cigarettes, uncomplicated; F41.8 Other specified anxiety disorders; F43.12 Post-traumatic stress disorder, chronic; R11.15 Cyclical vomiting syndrome unrelated to migraine; Z71.6 Tobacco abuse counseling; Z59.02 Unsheltered homelessness; Z88.0 Allergy status to penicillin; Z88.5 Allergy status to narcotic agent; Z79.84 Long term (current) use of oral hypoglycemic drugs; Z79.899 Other long term (current) drug therapy
CPT/HCPCS: 36415; 80053; 80061; 82565; 82607; 82746; 82947; 83036; 84439; 84443; 93005

== ENCOUNTER → 2022-08-29 17:56 | Outpatient (BNV) | payer OTHER, SELFPAY | PROVIDERS: Admitting Provider Psychiatry & Neurology Psychiatry; Visit Provider Psychiatry & Neurology Psychiatry | DX: F33.2 Major depressive disorder, recurrent severe without psychotic features (principal); F43.11 Post-traumatic stress disorder, acute; F11.90 Opioid use, unspecified, uncomplicated; R11.15 Cyclical vomiting syndrome unrelated to migraine; E11.9 Type 2 diabetes mellitus without complications | CPT/HCPCS: 90792; 99231; 99232; 99238 ==